=== PATIENT | male | born 1965 | race Caucasian/White ===

== ENCOUNTER 2025-03-01 18:03 | Emergency (ER) | payer BC ==
[~2025-03-01] VITALS: Ht 162.6 cm; Wt 68.0 kg
[2025-03-01] MEDS ORDERED: TDAP [DIPH/PERTUSSIS/TET] 0.5 ML VIAL IM ONE (19:15)
[2025-03-01] MEDS: LIDOCAINE HCL/PF 1% 30 ML VIAL TP ONE (19:25)
[2025-03-01] MEDS: BACI/NEOM/POLY B OINT PKT 1 UDPKT PACKET TP ONE (19:25)
[2025-03-01] MEDS: TDAP [DIPH/PERTUSSIS/TET] 0.5 ML VIAL IM ONE (19:33)
[2025-03-01 19:52] VITALS: BP 135/70; TEMP 98; O2SAT 99
== END 2025-03-01 19:53 | disposition home or self-care (01) ==
LOC: ER 18:05
DX: S61.012A Laceration without foreign body of left thumb without damage to nail, initial encounter (principal); Z60.2 Problems related to living alone; W26.0XXA Contact with knife, initial encounter; Y93.89 Activity, other specified; Y92.89 Other specified places as the place of occurrence of the external cause; Y99.8 Other external cause status
CPT/HCPCS: 12001; 90471; 90715; 99283; J3490

== ENCOUNTER 2025-03-08 14:00 | Emergency (ER) | payer BC ==
[~2025-03-08] VITALS: Ht 162.6 cm; Wt 65.8 kg
[2025-03-08 14:16] VITALS: BP 132/79; TEMP 97.9
[2025-03-08 14:45] VITALS: O2SAT 98
== END 2025-03-08 14:46 | disposition home or self-care (01) ==
LOC: ER 14:03
DX: Z48.00 Encounter for change or removal of nonsurgical wound dressing (principal)